=== PATIENT | female | born 1940 | race Caucasian/White ===

== ENCOUNTER 2019-12-29 10:01 | Emergency (ER) | payer MEDICARE, OTHER ==
[~2019-12-29] VITALS: Ht 157.5 cm; Wt 75.0 kg
[2019-12-29 10:52] LABS: BASO # 0.1 10^3/uL (0.0-0.2); BASO % 0.7 % (0.0-1.0); EOS # 0.3 10^3/uL (0.0-0.5); EOS % 3.1 % (0.0-3.0); HEMATOCRIT 49.5 % (36.0-47.0); HEMOGLOBIN 15.7 g/dl (12.0-15.5); LYMPH # 1.2 10^3/uL (1.5-5.0); LYMPH % 13.9 % (24.0-44.0); MEAN CORPUSCULAR HEMOGLOBIN 27.8 pg (27.0-33.0); MEAN CORPUSCULAR HGB CONC 31.7 g/dl (32.0-36.5); MEAN CORPUSCULAR VOLUME 87.6 fl (80.0-96.0); MONO # 0.8 10^3/uL (0.0-0.8); MONO % 8.9 % (0.0-5.0); NEUTROPHILS # 6.3 10^3/uL (1.5-8.5); NEUTROPHILS % 73.2 % (36.0-66.0); PLATELET COUNT, AUTOMATED 886 10^3/uL (150-450); RED BLOOD COUNT 5.65 10^6/uL (4.00-5.40); WHITE BLOOD COUNT 8.6 10^3/uL (4.0-10.0)
[2019-12-29 11:23] LABS: ALBUMIN 3.5 GM/DL (3.2-5.2); ALT/SGPT 25 U/L (12-78); BILIRUBIN,DIRECT 0.1 MG/DL (0.0-0.2); BILIRUBIN,TOTAL 0.4 MG/DL (0.2-1.0); BLOOD UREA NITROGEN 19 MG/DL (7-18); CARBON DIOXIDE LEVEL 28 MEQ/L (21-32); CHLORIDE LEVEL 104 MEQ/L (98-107); CK-MB VALUE MASS 1.4 NG/ML (<3.6); CPK CREATINE PHOSPHOKINASE 35 U/L (26-192); FREE T4 1.01 NG/DL (0.76-1.46); GLOMERULAR FILTRATION RATE > 60.0 (>39); GLUCOSE, FASTING 94 MG/DL (70-100); LIPASE 244 U/L (73-393); POTASSIUM SERUM 4.5 MEQ/L (3.5-5.1); SODIUM LEVEL 137 MEQ/L (136-145); TOTAL PROTEIN 8.1 GM/DL (6.4-8.2); TROPONIN I < 0.02 NG/ML (< 0.10)
[2019-12-29] MEDS ORDERED: LOSA25TA14 PO (12:43)
[2019-12-29] MEDS ORDERED: LOSARTAN 25 MG TAB PO ONE (12:45)
[2019-12-29 13:00] VITALS: BP 178/84
--- NOTE | 2019-12-29 13:24 | REP ---
REASON FOR EXAM: Chest pain. No priors for comparison. The technique utilized in obtaining the radiograph has magnified the cardiac silhouette and accentuated the interstitial markings. The cardiac silhouette is magnified by technique. Mild cardiomegaly cannot be ruled out. There is a single linear discoid opacity in the left lower lobe. Lung rock are otherwise clear. The pleural angles remain sharp. The osseous structures are within normal limits. IMPRESSION: Likely subsegmental/discoid atelectasis left lower lobe. Electronically Signed by Bry Scales DO 12/29/2019 02:58 P
--- NOTE | 2019-12-29 14:06 | ECGEPIP ---
[facility] - ED Test Date: 2019-12-29 Pat Name: SADIA THOMPSON Department: Room: - Gender: Female [employer] Operator: TANA : [id number] Requested By: Xi Ellis Order Number: [id number] Reading MD: Xi Ellis Measurements Intervals [place] Rate: 90 P: 60 [place]: 183 QRS: -24 QRSD: 140 T: 126 QT: 344 QTc: 422 Interpretive Statements SINUS RHYTHM LEFT BUNDLE BRANCH BLOCK NO PRIOR Electronically Signed on 12-29-2019 14:05:58 EDT by Xi Ellis
== END 2019-12-29 13:20 | disposition home or self-care (01) ==
LOC: M ED 10:01
DX: I10 Essential (primary) hypertension (principal); R00.2 Palpitations; I44.7 Left bundle-branch block, unspecified

== ENCOUNTER → 2020-02-08 | Outpatient (CLI) | payer MEDICARE, OTHER ==
[~2020-02-08] MED LIST: LOSA25TA14 PO
[2020-02-08 10:31] LABS: BLOOD UREA NITROGEN 23 MG/DL (7-18); CALCIUM LEVEL 9.7 MG/DL (8.8-10.2); CARBON DIOXIDE LEVEL 31 MEQ/L (21-32); CHLORIDE LEVEL 101 MEQ/L (98-107); CREATININE FOR GFR 0.93 MG/DL (0.55-1.30); GLOMERULAR FILTRATION RATE > 60.0 (>39); GLUCOSE, FASTING 76 MG/DL (70-100); POTASSIUM SERUM 5.2 MEQ/L (3.5-5.1); SODIUM LEVEL 137 MEQ/L (136-145)
== END ==
LOC: M LAB 08:37
PROVIDERS: ATTEND Internal Medicine Cardiovascular Disease
DX: E03.9 Hypothyroidism, unspecified (principal); I10 Essential (primary) hypertension

== ENCOUNTER → 2020-04-24 | Outpatient (REF) | payer MEDICARE, OTHER ==
[2020-04-24 17:47] LABS: ALBUMIN 3.5 GM/DL (3.2-5.2); ALT/SGPT 18 U/L (12-78); BILIRUBIN,TOTAL 0.4 MG/DL (0.2-1.0); BLOOD UREA NITROGEN 21 MG/DL (7-18); CALCIUM LEVEL 9.5 MG/DL (8.8-10.2); CARBON DIOXIDE LEVEL 30 MEQ/L (21-32); CHLORIDE LEVEL 105 MEQ/L (98-107); CHOLESTEROL LEVEL 211 MG/DL (<200); CHOLESTEROL RISK RATIO 3.701 (<5); CREATININE FOR GFR 0.93 MG/DL (0.55-1.30); FREE T4 1.32 NG/DL (0.76-1.46); GLOMERULAR FILTRATION RATE > 60.0 (>39); GLUCOSE, FASTING 82 MG/DL (70-100); HDL CHOLESTEROL 57 MG/DL (>40); LDL CHOLESTEROL 134 MG/DL (<100); NON-HDL-C 154 MG/DL; POTASSIUM SERUM 5.2 MEQ/L (3.5-5.1); SODIUM LEVEL 139 MEQ/L (136-145); TOTAL PROTEIN 7.5 GM/DL (6.4-8.2); TRIGLYCERIDES LEVEL 98 MG/DL (<150)
== END ==
LOC: M SFHCADAM 15:59
PROVIDERS: ATTEND Family Medicine
DX: I11.9 Hypertensive heart disease without heart failure (principal); E78.5 Hyperlipidemia, unspecified; E03.9 Hypothyroidism, unspecified

== ENCOUNTER → 2020-08-15 | Outpatient (REF) | payer MEDICARE, OTHER ==
[2020-08-15 13:27] LABS: ALBUMIN 3.7 GM/DL (3.2-5.2); BILIRUBIN,TOTAL 0.4 MG/DL (0.2-1.0); CALCIUM LEVEL 9.7 MG/DL (8.8-10.2); CHOLESTEROL RISK RATIO 3.75 (<5); CREATININE FOR GFR 1.11 MG/DL (0.55-1.30); FREE T4 1.33 NG/DL (0.76-1.46); GLOMERULAR FILTRATION RATE 50.5 (>39); POTASSIUM SERUM 5.4 MEQ/L (3.5-5.1); THYROID STIMULATING HORMONE 6.41 uIU/ML (0.358-3.740); TOTAL PROTEIN 7.7 GM/DL (6.4-8.2)
== END ==
LOC: M SFHCADAM 08:01
PROVIDERS: ATTEND Family Medicine
DX: I11.9 Hypertensive heart disease without heart failure (principal); E78.5 Hyperlipidemia, unspecified; E03.9 Hypothyroidism, unspecified

== ENCOUNTER → 2021-05-24 | Outpatient (CLI) | payer MEDICARE, OTHER ==
--- NOTE | 2021-05-24 12:24 | REP ---
INDICATION: SPRAIN OF UNSPECIFIED LIGAMENT OF LEFT ANKLE, INIT ENCNTR. COMPARISON: None. TECHNIQUE: Four views FINDINGS: No acute fracture or destructive osseous lesion. The mortise is intact. Small plantar and retrocalcaneal heel spurs are present. IMPRESSION: No acute osseous abnormality <Electronically signed by Bry Scales > 05/24/21 [id number]
--- NOTE | 2021-05-24 12:25 | REP ---
INDICATION: SPRAIN OF UNSPECIFIED LIGAMENT OF LEFT ANKLE, INIT ENCNTR. COMPARISON: None. TECHNIQUE: Four views FINDINGS: The joint spaces are symmetric and relatively well maintained. There is no evidence of acute fracture or destructive osseous lesion. IMPRESSION: No acute osseous abnormality <Electronically signed by Bry Scales > 05/24/21 0745
== END ==
LOC: M RAD 11:17
PROVIDERS: ATTEND Physician Assistant
DX: S93.402A Sprain of unspecified ligament of left ankle, initial encounter (principal); S93.602A Unspecified sprain of left foot, initial encounter; X58.XXXA Exposure to other specified factors, initial encounter; Y92.9 Unspecified place or not applicable

== ENCOUNTER → 2021-08-19 | Outpatient (REF) | payer MEDICARE, OTHER ==
[2021-08-19 12:41] LABS: HEMATOCRIT 46.8 % (36.0-47.0); HEMOGLOBIN 14.6 g/dl (12.0-15.5); MEAN CORPUSCULAR HEMOGLOBIN 27.4 pg (27.0-33.0); MEAN CORPUSCULAR HGB CONC 31.2 g/dl (32.0-36.5); MEAN CORPUSCULAR VOLUME 87.8 fl (80.0-96.0); PLATELET COUNT, AUTOMATED 952 10^3/uL (150-450); RED BLOOD COUNT 5.33 10^6/uL (4.00-5.40); WHITE BLOOD COUNT 9.3 10^3/uL (4.0-10.0)
[2021-08-19 13:12] LABS: ALBUMIN 3.6 GM/DL (3.2-5.2); BILIRUBIN,TOTAL 0.3 MG/DL (0.2-1.0); CALCIUM LEVEL 9.8 MG/DL (8.8-10.2); CHOLESTEROL RISK RATIO 4.547 (<5); CREATININE FOR GFR 1.21 MG/DL (0.55-1.30); FREE T4 1.37 NG/DL (0.76-1.46); GLOMERULAR FILTRATION RATE 45.6 (>32); POTASSIUM SERUM 5.1 MEQ/L (3.5-5.1); THYROID STIMULATING HORMONE 5.24 uIU/ML (0.358-3.740); TOTAL PROTEIN 7.5 GM/DL (6.4-8.2)
== END ==
LOC: M SFHCADAM 09:27
PROVIDERS: ATTEND Family Medicine
DX: Q21.1 Atrial septal defect (principal); I11.9 Hypertensive heart disease without heart failure; E78.5 Hyperlipidemia, unspecified; E03.9 Hypothyroidism, unspecified
CPT/HCPCS: 80053; 80061; 84439; 84443; 85027; G0463

== ENCOUNTER 2021-12-22 13:36 | Outpatient (CLI) | payer MEDICARE ==
[~2021-12-22 13:36] MED LIST changes: +LOSA25TA13 PO; -LOSA25TA14 PO
[2021-12-22] MEDS ORDERED: BEBTELOVIMAB 175MG 2ML VIAL (EUA) IV ONE (14:30)
[2021-12-22 15:00] VITALS: BP 158/88
[2021-12-22 16:31] VITALS: BP 190/86
== END 2021-12-22 16:20 | disposition home or self-care (01) ==
LOC: M OPCLI4PR 13:36 → M 4MAIN 13:56 → M OPCLI4PR 16:20
PROVIDERS: ATTEND Physician Assistant Medical
DX: U07.1 COVID-19 (principal)

== ENCOUNTER → 2021-12-29 | Outpatient (CLI) | payer MEDICARE ==
[2021-12-29 15:49] LABS: APPEARANCE, URINE CLOUDY (CLEAR); BACTERIA, URINE AUTO 1+ (NEGATIVE); BILIRUBIN, URINE AUTO NEGATIVE (NEGATIVE); BLOOD, URINE BLOOD NEGATIVE (NEGATIVE); COLOR, URINE YELLOW (YELLOW); GLUCOSE, URINE (UA) AUTO NEGATIVE (NEGATIVE); KETONE, URINE AUTO NEGATIVE (NEGATIVE); LEUKOCYTE ESTERASE, URINE AUTO 3+ (NEGATIVE); MUCUS, URINE SMALL (NEGATIVE); NITRITE, URINE AUTO NEGATIVE (NEGATIVE); OVAL FAT BODIES, URINE AUTO 0 /HPF (<1); PROTEIN, URINE AUTO 1+ mg/dL (NEGATIVE); RBC, URINE AUTO 8 /HPF (0-3); SPECIFIC GRAVITY URINE AUTO 1.018 (1.002-1.035); SQUAMOUS EPITHELIAL CELL UR AU 0 /HPF (0-6); UROBILINOGEN, URINE AUTO 0.2 mg/dL (0.0-2.0); WBC, URINE AUTO TNTC /HPF (0-3)
== END ==
LOC: M WUC 12:54
PROVIDERS: ATTEND Family Medicine
DX: R39.15 Urgency of urination (principal)

== ENCOUNTER → 2022-10-09 | Outpatient (REF) | payer MEDICARE, OTHER ==
[2022-10-09 13:09] LABS: HEMATOCRIT 51.5 % (36.0-47.0); HEMOGLOBIN 15.8 g/dl (12.0-15.5); MEAN CORPUSCULAR HEMOGLOBIN 25.9 pg (27.0-33.0); MEAN CORPUSCULAR HGB CONC 30.7 g/dl (32.0-36.5); MEAN CORPUSCULAR VOLUME 84.6 fl (80.0-96.0); PLATELET COUNT, AUTOMATED 962 10^3/uL (150-450); RED BLOOD COUNT 6.09 10^6/uL (4.00-5.40); WHITE BLOOD COUNT 11.8 10^3/uL (4.0-10.0)
[2022-10-09 13:13] LABS: BILIRUBIN,TOTAL 0.4 MG/DL (0.3-1.2); CALCIUM LEVEL 9.9 MG/DL (8.3-10.6); CHOLESTEROL RISK RATIO 3.89 (<5); CREATININE FOR GFR 1.06 MG/DL (0.55-1.30); HDL CHOLESTEROL 53.6 MG/DL (>40); LDL CHOLESTEROL 134.6 MG/DL (<100); POTASSIUM SERUM 5.6 MMOL/L (3.5-5.1); TOTAL PROTEIN 7.7 G/DL (5.7-8.2)
[2022-10-09 13:15] LABS: THYROID STIMULATING HORMONE 9.98 uIU/ML (0.55-4.78)
[2022-10-09 13:16] LABS: FREE T4 1.32 NG/DL (0.89-1.76)
== END ==
LOC: M SFHCADAM 08:48
PROVIDERS: ATTEND Family Medicine
DX: I11.9 Hypertensive heart disease without heart failure (principal); Q21.10 Atrial septal defect, unspecified; E03.9 Hypothyroidism, unspecified; E78.5 Hyperlipidemia, unspecified; Z13.1 Encounter for screening for diabetes mellitus

== ENCOUNTER → 2022-12-15 | Outpatient (REF) | payer MEDICARE, OTHER ==
[2022-12-15 14:59] LABS: THYROID STIMULATING HORMONE 5.898 uIU/ML (0.55-4.78)
[2022-12-15 15:02] LABS: FREE T4 1.38 NG/DL (0.89-1.76)
[2022-12-15 15:23] LABS: BASO # 0.1 10^3/uL (0.0-0.2); EOS # 0.4 10^3/uL (0.0-0.5); EOS % 3.6 % (0.0-3.0); HEMATOCRIT 50.9 % (36.0-47.0); HEMOGLOBIN 15.8 g/dl (12.0-15.5); LYMPH # 1.5 10^3/uL (1.5-5.0); LYMPH % 13.7 % (24.0-44.0); MEAN CORPUSCULAR HEMOGLOBIN 26.6 pg (27.0-33.0); MEAN CORPUSCULAR VOLUME 85.7 fl (80.0-96.0); MONO # 0.9 10^3/uL (0.0-0.8); MONO % 8.4 % (2.0-8.0); NEUTROPHILS # 7.7 10^3/uL (1.5-8.5); NEUTROPHILS % 72.3 % (36.0-66.0); RED BLOOD COUNT 5.94 10^6/uL (4.00-5.40); WHITE BLOOD COUNT 10.7 10^3/uL (4.0-10.0)
[2022-12-15 15:27] LABS: PLATELET COUNT, AUTOMATED 1201 10^3/uL (150-450)
== END ==
LOC: M SFHCADAM 08:26
PROVIDERS: ATTEND Family Medicine
DX: E03.9 Hypothyroidism, unspecified (principal); D75.839 Thrombocytosis, unspecified

== ENCOUNTER → 2023-10-12 | Outpatient (REF) | payer MEDICARE, OTHER ==
[2023-10-12 15:23] LABS: HEMATOCRIT 49.5 % (36.0-47.0); HEMOGLOBIN 15.2 g/dl (12.0-15.5); MEAN CORPUSCULAR HEMOGLOBIN 27.3 pg (27.0-33.0); MEAN CORPUSCULAR HGB CONC 30.7 g/dl (32.0-36.5); RED BLOOD COUNT 5.56 10^6/uL (4.00-5.40); WHITE BLOOD COUNT 12.1 10^3/uL (4.0-10.0)
[2023-10-12 15:27] LABS: PLATELET COUNT, AUTOMATED 1204 10^3/uL (150-450)
[2023-10-12 15:55] LABS: FREE T4 1.46 NG/DL (0.89-1.76); THYROID STIMULATING HORMONE 8.356 uIU/ML (0.55-4.78)
[2023-10-12 15:58] LABS: ALBUMIN 3.9 G/DL (3.2-5.2); BILIRUBIN,TOTAL 0.4 MG/DL (0.3-1.2); CALCIUM LEVEL 9.6 MG/DL (8.3-10.6); CHOLESTEROL RISK RATIO 4.12 (<5); CREATININE FOR GFR 1.17 MG/DL (0.55-1.30); GLOMERULAR FILTRATION RATE 47.1 (>32); HDL CHOLESTEROL 50.7 MG/DL (>40); LDL CHOLESTEROL 133.5 MG/DL (<100); NON-HDL-C 158.3 MG/DL; POTASSIUM SERUM 5.9 MMOL/L (3.5-5.1); TOTAL PROTEIN 7.5 G/DL (5.7-8.2)
[2023-10-12 21:33] LABS: C REACTIVE PROTEIN QUANTITATIV < 0.40 MG/DL (<1.0)
[2023-10-12 21:36] LABS: RHEUMATOID FACTOR QUANT < 3.5 IU/ML (<14)
[2023-10-15 23:11] LABS: ANA (HEP2) Negative (.); CYCLIC CITRULLINATED PEPTIDE 9 units (0-19)
== END ==
LOC: M SFHCADAM 09:23
PROVIDERS: ATTEND Family Medicine
DX: E78.5 Hyperlipidemia, unspecified (principal); I11.9 Hypertensive heart disease without heart failure; E03.9 Hypothyroidism, unspecified; Z79.899 Other long term (current) drug therapy

== ENCOUNTER → 2024-08-23 | Outpatient (CLI) | payer OTHER ==
[2024-08-23 13:18] LABS: CHOLESTEROL RISK RATIO 4.71 (<5); CREATININE FOR GFR 1.08 MG/DL (0.55-1.30); GLOMERULAR FILTRATION RATE 51.6 (>32); HDL CHOLESTEROL 45.6 MG/DL (>40); LDL CHOLESTEROL 148.8 MG/DL (<100); NON-HDL-C 169.4 MG/DL; POTASSIUM SERUM 5.9 MMOL/L (3.5-5.1)
== END ==
LOC: M LRY 07:30
PROVIDERS: ATTEND Family Medicine
DX: E78.00 Pure hypercholesterolemia, unspecified (principal); I10 Essential (primary) hypertension

== ENCOUNTER → 2024-10-18 | Outpatient (REF) | payer MEDICARE ==
[2024-10-18 17:26] LABS: HEMATOCRIT 51.4 % (36.0-47.0); HEMOGLOBIN 15.4 g/dl (12.0-15.5); MEAN CORPUSCULAR VOLUME 86.7 fl (80.0-96.0); RED BLOOD COUNT 5.93 10^6/uL (4.00-5.40); WHITE BLOOD COUNT 11.9 10^3/uL (4.0-10.0)
[2024-10-18 17:52] LABS: PLATELET COUNT, AUTOMATED 1247 10^3/uL (150-450)
[2024-10-18 19:43] LABS: ALBUMIN 3.9 G/DL (3.2-5.2); ALKALINE PHOSPHATASE 60 U/L (35-104); ALT/SGPT < 9 U/L (7.0-40); AST/SGOT 19 U/L (<34); BILIRUBIN,TOTAL 0.4 MG/DL (0.3-1.2); BLOOD UREA NITROGEN 33 MG/DL (9-23); CALCIUM LEVEL 9.9 MG/DL (8.3-10.6); CARBON DIOXIDE LEVEL 27 MMOL/L (20-31); CHLORIDE LEVEL 102 MMOL/L (98-107); CHOLESTEROL LEVEL 210 MG/DL (<200); CHOLESTEROL RISK RATIO 4.28 (<5); CREATININE FOR GFR 1.25 MG/DL (0.55-1.30); FREE T4 1.75 NG/DL (0.89-1.76); GLOMERULAR FILTRATION RATE 43.6 (>32); GLUCOSE, FASTING 77 MG/DL (74-106); LDL CHOLESTEROL 132.4 MG/DL (<100); POTASSIUM SERUM 6.4 MMOL/L (3.5-5.1); SODIUM LEVEL 141 MMOL/L (136-145); THYROID STIMULATING HORMONE 2.606 uIU/ML (0.55-4.78); TOTAL PROTEIN 7.8 G/DL (5.7-8.2); TRIGLYCERIDES LEVEL 143 MG/DL (<150)
== END ==
LOC: M SFHCADAM 11:16
PROVIDERS: ATTEND Family Medicine
DX: E03.9 Hypothyroidism, unspecified (principal); E78.5 Hyperlipidemia, unspecified; I11.9 Hypertensive heart disease without heart failure; M13.89 Other specified arthritis, multiple sites

== ENCOUNTER → 2024-10-26 | Outpatient (CLI) | payer MEDICARE | LOC: M RAD 09:45 | PROVIDERS: ATTEND Physician Assistant | DX: I80.8 Phlebitis and thrombophlebitis of other sites (principal); R22.42 Localized swelling, mass and lump, left lower limb ==

== ENCOUNTER → 2024-12-22 | Outpatient (REF) | payer MEDICARE | LOC: M SFHCADAM 13:48 | PROVIDERS: ATTEND Family Medicine | DX: D58.8 Other specified hereditary hemolytic anemias (principal) ==

== ENCOUNTER → 2025-03-20 | Outpatient (CLI) | payer MEDICARE ==
[~2025-03-20] MED LIST changes: +DILT240C83; +ECOT81TA5 PO; +HYDR500C3 PO; +IBUP-1022 PO; +INDA1.253 PO; +LEVO125T4; +LIDOCAINE 1% MDV 20 ML VIAL As Ordered ONE; +NOXI1TAB PO; +OMEGCAP9 PO; +SLOWTAB2 PO; +garlique
[2025-03-20 08:10] VITALS: TEMP 97.3
[2025-03-20 09:02] VITALS: BP 138/78; O2SAT 98
[2025-03-20 09:35] LABS: BASO # 0.1 10^3/uL (0.0-0.2); BASO % 0.8 % (0.0-1.0); EOS # 0.0 10^3/uL (0.0-0.5); EOS % 0.4 % (0.0-3.0); LYMPH # 1.5 10^3/uL (1.5-5.0); LYMPH % 20.1 % (24.0-44.0); MONO # 1.1 10^3/uL (0.0-0.8); MONO % 14.3 % (2.0-8.0); NEUTROPHILS # 4.7 10^3/uL (1.5-8.5); NEUTROPHILS % 63.0 % (36.0-66.0); PLATELET COUNT, AUTOMATED 879 10^3/uL (150-450)
== END ==
LOC: M IRPRO 08:02
PROVIDERS: ATTEND Specialist
DX: D75.839 Thrombocytosis, unspecified (principal)

== ENCOUNTER → 2025-06-01 | Outpatient (CLI) | payer MEDICARE ==
[~2025-06-01] MED LIST changes: -IBUP-1022 PO; +IBUP600T42 PO; -LIDOCAINE 1% MDV 20 ML VIAL As Ordered ONE; +SLOW1TAB3 PO; -SLOWTAB2 PO; +[UNRECOGNIZED DRUG - CODE] PO
== END ==
LOC: M WHC 09:14
PROVIDERS: ATTEND Specialist
DX: D69.3 Immune thrombocytopenic purpura (principal); K76.89 Other specified diseases of liver; R16.0 Hepatomegaly, not elsewhere classified; R93.2 Abnormal findings on diagnostic imaging of liver and biliary tract

== ENCOUNTER → 2025-06-12 | Outpatient (REF) | payer MEDICARE ==
[2025-06-12 16:08] LABS: FREE T4 1.74 NG/DL (0.89-1.76)
== END ==
LOC: M SFHCADAM 09:00
PROVIDERS: ATTEND Family Medicine
DX: E03.9 Hypothyroidism, unspecified (principal)

== ENCOUNTER → 2025-07-11 | Outpatient (REF) | payer MEDICARE ==
[2025-07-11 14:25] LABS: CALCIUM LEVEL 9.7 MG/DL (8.3-10.6); CARBON DIOXIDE LEVEL 24.0 MMOL/L (20-31); CHLORIDE LEVEL 107.0 MMOL/L (98-107); CREATININE FOR GFR 1.43 MG/DL (0.55-1.30); GLOMERULAR FILTRATION RATE 36.2 (>32); POTASSIUM SERUM 5.0 MMOL/L (3.5-5.1); SODIUM LEVEL 141.0 MMOL/L (136-145)
[2025-07-11 14:27] LABS: TOTAL 25(OH) VITAMIN D 38.6 NG/ML (20.0-100.0)
[2025-07-11 14:28] LABS: PLATELET COUNT, AUTOMATED 956 10^3/uL (150-450)
== END ==
LOC: M SFHCADAM 10:34
PROVIDERS: ATTEND Family Medicine
DX: N18.32 Chronic kidney disease, stage 3b (principal); D63.1 Anemia in chronic kidney disease